=== PATIENT | female | born 1935 | race Caucasian/White ===

== ENCOUNTER 2020-10-10 08:47 | Outpatient (CLI) | payer MEDICARE, BC | END 2020-10-10 08:48 | disposition home or self-care (01) | LOC: CSHCT 08:47 | PROVIDERS: ATTEND Urology | DX: C64.1 Malignant neoplasm of right kidney, except renal pelvis (principal); Z90.5 Acquired absence of kidney; Z98.890 Other specified postprocedural states; K80.20 Calculus of gallbladder without cholecystitis without obstruction | CPT/HCPCS: 71046; 74178; 82565 ==

== ENCOUNTER 2022-10-14 09:31 | Outpatient (CLI) | payer MEDICARE, BC ==
[~2022-10-14 09:31] MED LIST: Iopamidol 300 61% 100 ML VIAL FS ONE
== END 2022-10-14 09:32 | disposition home or self-care (01) ==
LOC: CSHCT 09:31
PROVIDERS: ATTEND Urology
DX: C64.1 Malignant neoplasm of right kidney, except renal pelvis (principal); J44.9 Chronic obstructive pulmonary disease, unspecified; Z90.5 Acquired absence of kidney; K80.20 Calculus of gallbladder without cholecystitis without obstruction; K83.8 Other specified diseases of biliary tract; N32.89 Other specified disorders of bladder
CPT/HCPCS: 71046; 74178; 82565